=== PATIENT | male | born 2000 | race Caucasian/White ===

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

== ENCOUNTER → 2020-02-27 | Outpatient (REF) | payer OTHER | LOC: M LAB REF 16:43 | PROVIDERS: ATTEND Specialist | DX: H60.01 Abscess of right external ear (principal) ==

== ENCOUNTER → 2020-11-20 | Outpatient (REF) | payer OTHER | LOC: M LAB REF 12:44 | PROVIDERS: ATTEND Specialist | DX: J06.9 Acute upper respiratory infection, unspecified (principal) ==

== ENCOUNTER → 2021-05-12 | Outpatient (REF) | payer OTHER | LOC: M LAB REF 09:44 | PROVIDERS: ATTEND Nurse Practitioner Family | DX: J06.9 Acute upper respiratory infection, unspecified (principal) ==